=== PATIENT | male | born 1975 | race Caucasian/White ===

== ENCOUNTER → 2017-09-11 | Outpatient (CLI) | payer OTHER ==
--- NOTE | 2017-09-11 16:08 | XR ---
Left shoulder HISTORY: Left shoulder pain 3 views of the left shoulder No comparison Bone mineralization, joint spaces and alignment are maintained. Question soft tissue prominence. IMPRESSION: No fracture or dislocation. Shoulder MRI may be of benefit.
== END | disposition home or self-care (01) ==
LOC: RADXRMAIN 15:13
PROVIDERS: ATTEND Emergency Medicine
DX: S43.402A Unspecified sprain of left shoulder joint, initial encounter (principal)

== ENCOUNTER → 2020-11-22 | Outpatient (CLI) | payer OTHER ==
--- NOTE | 2020-11-22 17:08 | US ---
EXAMINATION TYPE: US kidneys/renal and bladder DATE OF EXAM: 11/22/2020 COMPARISON: CLINICAL HISTORY: R31.9 Hematuria. Urine frequency, no pain EXAM MEASUREMENTS: Right Kidney: 10.8 x 6.2 x 5.6 cm Left Kidney: 10.9 x 6.0 x 6.1 cm Right Kidney: No hydronephrosis or renal calculi seen Left Kidney: No hydronephrosis or renal calculi seen Bladder: mildly distended Bilateral Jets ureteral jets are not seen No hydronephrosis or renal calculi. IMPRESSION: 1. No evidence of hydronephrosis or shadowing renal calculi either kidney. 2. Bilateral ureteral jets are not visualized.
== END | disposition home or self-care (01) ==
LOC: RADUSWWP 07:54
PROVIDERS: ATTEND Family Medicine
DX: R31.9 Hematuria, unspecified (principal)
CPT/HCPCS: 76770

== ENCOUNTER → 2023-06-24 | Outpatient (CLI) | payer OTHER ==
--- NOTE | 2023-06-24 16:41 | P.SLEEP ---
History of Present Illness H&P Date: 06/24/23 This is a 47-year-old male patient was coming to see me regarding his obstructive sleep apnea. The patient was diagnosed having JANET many years back through a sleep study that was done in [facility] He is telling me that he has been diagnosed having severe JANET. He has gone through several CPAP machines and currently has a DreamStation 2 and this machine is currently set at a pressure of 10 cm of water with a C-Flex of 3 and he is using a Simplus full facemask. The patient is very compliant with CPAP machine. I did a 30-day compliance check on his machine and I saw that the patient has been utilizing his machine every night and is averaging about 8 hours and 10 minutes of CPAP use per night and his AHI is down to 1.4. He has excellent mask seal without any leaks. His weight has remained stable at around 325 pounds over the past 5 years at least. No snoring while on the CPAP machine. No major hypersomnia or sleepiness as long as he uses his machine. He is going to bed at around 9:30 PM and he gets up at around 2 AM in the morning. He wakes up early as his george carreon gets up to go to work. On weekends, he sleeps between 11 PM and 4 AM in the morning. He is averaging around 5 hours of sleep. Nevertheless, he is taking naps during the day and this very much explains his 8 hours of usage of his CPAP machine. He takes a few minutes to fall asleep. No morning headaches. No issues with concentration or memory during the day. His current Naples score is at 4. He is known to have hypertension and his blood pressure is under poor control at this point in time. States that he has not taken his blood pressure medications and this explains his elevated blood pressure which was recorded to be at 190/136 today. No headaches. No heartburn overnight. No restlessness in lower extremities. No smoking. No drinking. No substance abuse. No other complaints otherwise. Past medical history includes obesity, obstructive sleep apnea, chronic anxiety and depression, and hypertension Past surgical history includes a repair of a deviated septum, right elbow surgery and a skin graft from the left lower extremity. Allergies are not known Medications are not known at this point in time yet the patient admits that he has some blood pressure medications at home. Social history, the patient is non-smoker. No drinking. No alcoholism. No substance abuse. Family history is father of complications of his kidney disease. No history of any sleep breathing disorder. Review of systems. 14 point review of system was done and the positive findings are mentioned above in the history of present illness. Otherwise negative BP is 190/136, pulse 69, respirations 16, temperature 97.3, weight is 325 pounds and the size of the neck is 21-1/2 inches with an Naples score of 4 and a body mass next of 45.3 and the pulse ox is 97% on room air oxygen. General appears morbidly obese, comfortable no acute distress. He has a Mallampati class IV with significant crowding of the posterior pharynx. The patient appeared well nourished and normally developed. Vital signs as documented. Head exam is unremarkable. No scleral icterus or corneal arcus noted. Neck is without jugular venous distension, thyromegaly, or carotid bruits. Carotid upstrokes are brisk bilaterally. Lungs are clear to auscultation and percussion. Cardiac exam reveals the PMI to be normally sized and situated. Rhythm is regular. First and second heart sounds normal. No murmurs, rubs or gallops. Abdominal exam reveals normal bowel sounds, no masses, no organomegaly and no aortic enlargement. Extremities are nonedematous and both femoral and pedal pulses are normal. Examination of the skin revealed no evidence of significant rashes, suspicious appearing nevi or other concerning lesions. Neurologically, the patient is awake and alert and the patient does not have any focal neurological deficit. Cranial nerves are essentially intact. Assessment Severe obstructive sleep apnea and the patient has been adequately treated with the CPAP machine at a pressure of 10 cm of water. The patient is a DreamStation 2 and his treatment is extremely successful at this point in time. No need for any further adjustment. He is quite comfortable with his current mask interface which includes a Simplus fullface mask medium size. Morbid obesity with a body mass index of 45.3 and the weight has remained stable over the years of 325 pounds. Chronic hypersomnia improved with CPAP therapy and her current Naples score is down to 4 Chronic anxiety/depression Hypertension with poorly controlled blood pressure. The patient is asymptomatic. His blood pressure is quite elevated at this point in time. Plan I asked the patient to go home and immediately take his blood pressure medication and monitor the blood pressure and if it remains elevated contact his primary care physician. At the same time, continues in the CPAP. He is extremely compliant. He is utilizing the machine every night without any issues. No need for adjustment of the CPAP pressure or the mask interface. Would like to obtain the copy of the original polysomnography that was done at [facility]. Would like to refill his supplies through DME. No other active issues for now. Maintain regular sleep schedule. Try to eliminate naps and consolidate his sleep mainly at nighttime. Overall, he is averaging around 8 hours of sleep without any major hypersomnia or issues with functionality during the day. Will continue to follow. Sleep Note - Sleep Note Sleep Note: Temperature: Pulse Rate: Respiratory Rate: Blood Pressure: SpO2: Height: Weight: BMI: Neck Circumference:
== END ==
LOC: 3 N SLEEP 15:05
PROVIDERS: ATTEND Internal Medicine Critical Care Medicine
DX: G47.33 Obstructive sleep apnea (adult) (pediatric) (principal); E66.01 Morbid (severe) obesity due to excess calories; G47.10 Hypersomnia, unspecified; F41.9 Anxiety disorder, unspecified; F32.A Depression, unspecified; I10 Essential (primary) hypertension; Z68.41 Body mass index [BMI] 40.0-44.9, adult
CPT/HCPCS: 99211